=== PATIENT | female | born 1965 | race Caucasian/White ===

== ENCOUNTER → 2016-09-18 | Outpatient (CLI) | payer MEDICAID ==
--- NOTE | 2016-09-18 20:06 | MA ---
Screening Digital Mammogram With iCAD Indication: Routine screening. Mother diagnosed with breast cancer at the age of 47. Technique: Standard cephalocaudal and mediolateral oblique projections are obtained. This examinati on was processed with the iCAD computer-aided detection system. Comparison: August 2013 and August 2012 Breast density: Type C. Findings: CAD was reviewed. No suspicious microcalcifications, mass, or architectural distortion. Impression: Negative mammogram BI-RADS: 1 - Negative Recommendation: Routine screening is recommended in one year, as long as physical examination is matthew gn in this patient with moderately dense breast parenchyma. [facility] will send a result letter to the patient. Negative mammography should not preclude additional workup of a clinically suspicious finding. The patient's information is entered into a reminder system with a target due date for her next mammo gram.
== END ==
LOC: FIMAGING 12:08
DX: Z12.31 Encounter for screening mammogram for malignant neoplasm of breast (principal); Z80.3 Family history of malignant neoplasm of breast
CPT/HCPCS: G0202

== ENCOUNTER → 2017-02-28 | Outpatient (CLI) | payer MEDICAID | LOC: FIMAGING 15:05 | PROVIDERS: ATTEND Family Medicine | DX: R63.8 Other symptoms and signs concerning food and fluid intake (principal); R53.82 Chronic fatigue, unspecified | CPT/HCPCS: 82784-90; 83516-90; 86644-90; 86645-90; 86664-90; 86665-90 ==